=== PATIENT | male | born 1995 | race Caucasian/White ===

== ENCOUNTER 2019-03-11 18:53 | Emergency (ER) | payer MEDICAID ==
[~2019-03-11] VITALS: Ht 185.4 cm; Wt 99.0 kg
[2019-03-11 19:07] VITALS: BP 124/77
== END 2019-03-11 20:44 | disposition home or self-care (01) ==
LOC: ED 20:34
DX: T40.4X1A Poisoning by other synthetic narcotics, accidental (unintentional), initial encounter (principal); F11.10 Opioid abuse, uncomplicated; Y92.9 Unspecified place or not applicable
CPT/HCPCS: 99283

== ENCOUNTER 2019-07-09 07:00 | Emergency (ER) | payer MEDICAID ==
[~2019-07-09] VITALS: Ht 185.4 cm; Wt 105.7 kg
[2019-07-09 07:02] VITALS: BP 136/88
== END 2019-07-09 07:44 | disposition home or self-care (01) ==
LOC: ED 07:30
DX: K04.7 Periapical abscess without sinus (principal); K08.89 Other specified disorders of teeth and supporting structures; Z87.891 Personal history of nicotine dependence
CPT/HCPCS: 99283

== ENCOUNTER 2019-09-28 10:06 | Emergency (ER) | payer MEDICAID ==
[~2019-09-28] VITALS: Ht 185.4 cm; Wt 100.6 kg
[2019-09-28 10:08] VITALS: BP 144/88
== END 2019-09-28 11:05 | disposition home or self-care (01) ==
LOC: ED 10:50
DX: K04.7 Periapical abscess without sinus (principal); R22.0 Localized swelling, mass and lump, head
CPT/HCPCS: 99283